=== PATIENT | female | born 2000 | race Caucasian/White ===

== ENCOUNTER 2021-06-08 07:06 | Outpatient (CLI) | payer MEDICAID, SELFPAY ==
[~2021-06-08] VITALS: Ht 157.5 cm; Wt 86.2 kg
== END 2021-06-08 12:00 | disposition home or self-care (01) ==
LOC: SLB 07:06 → EDSTATUS 06-10 11:30
PROVIDERS: ATTEND Obstetrics & Gynecology
DX: Z01.812 Encounter for preprocedural laboratory examination (principal); Z20.822 Contact with and (suspected) exposure to COVID-19
CPT/HCPCS: 36415

== ENCOUNTER 2021-12-01 09:29 | Day surgery (SDC) | payer MEDICAID ==
[~2021-12-01] VITALS: Ht 157.5 cm; Wt 77.6 kg
[2021-12-01 09:51] LABS: HCG,QUAL RESULT NEGATIVE (NEGATIVE)
[2021-12-01] MEDS ORDERED: LR 500 ML IV.SOLN IV ONE (11:57)
[2021-12-01] MEDS ORDERED: fentaNYL CITRATE 250 MCG/5 ML AMP ONE (11:57)
[2021-12-01] MEDS ORDERED: LIDOCAINE 1% 10 MG/ML, 20 ML MDV ONE (11:57)
[2021-12-01] MEDS ORDERED: NS 1000 ML IV.SOLN IV ONE (11:57)
[2021-12-01] MEDS ORDERED: SEVOFLURANE 15 MIN GAS INH ONE (11:57)
[2021-12-01] MEDS ORDERED: MIDAZOLAM HCL 5 MG/ML VIAL (VERSED) IV ONE (11:57)
[2021-12-01] MEDS ORDERED: GLYCOPYRROLATE 0.2 MG/ML VIAL ONE (11:57)
[2021-12-01] MEDS ORDERED: ONDANSETRON HCL 4 MG/2 ML VIAL ONE (11:57)
[2021-12-01] MEDS ORDERED: KETOROLAC TROMETHAMINE 30 MG VIAL ONE (11:57)
[2021-12-01] MEDS ORDERED: PROPOFOL 200MG/ 20ML VIAL (DIPRIVAN) IV ONE (11:57)
[2021-12-01] MEDS ORDERED: METOCLOPRAMIDE HCL 10 MG/2 ML VIAL ONE (11:57)
[2021-12-01] MEDS ORDERED: LR 1,000 ML IV SCH (12:45)
[2021-12-01] MEDS ORDERED: KETOROLAC TROMETHAMINE 30 MG VIAL IVP PRN (12:45)
[2021-12-01] MEDS ORDERED: HYDROmorphone 2 MG/ML VIAL IVP PRN (12:45)
[2021-12-01] MEDS ORDERED: HYDROmorphone 1 MG/ML INJ. CARTRIDGE IVP PRN (12:45)
[2021-12-01] MEDS ORDERED: ONDANSETRON HCL 4 MG/2 ML VIAL IVP PRN (12:45)
[2021-12-01 15:24] VITALS: BP_SYST 140
== END 2021-12-01 15:00 | disposition home or self-care (01) ==
LOC: SDS 09:29 → SMU 09:30 → SDS 15:00
PROVIDERS: ATTEND Obstetrics & Gynecology
DX: T83.32XA Displacement of intrauterine contraceptive device, initial encounter (principal); Y82.8 Other medical devices associated with adverse incidents; Z20.822 Contact with and (suspected) exposure to COVID-19
CPT/HCPCS: 36415 ×2; 58558; 84703; 86886; 86900; 86901; 87426; U0003; J3490; J1885; J2001; J2765; J2250; J2405; J2704; J3010; J7030; J7120